=== PATIENT | female | born 1975 | race Asian ===

== ENCOUNTER 2017-09-29 07:10 | Inpatient (IN) | payer OTHER ==
[2017-09-29] VITALS (7 sets, daily range): BP systolic 152–192; BP diastolic 88–128
[~2017-09-29] VITALS: Ht 152.4 cm; Wt 86.2 kg
[2017-09-29] MEDS ORDERED: NOHOMEMEDICATIONS (07:17)
[2017-09-29 07:59] LABS: ABSOLUTE EOSINOPHILS 0.1 thou/uL (0.0-0.7); ABSOLUTE LYMPHOCYTES 1.9 thou/uL (0.8-5.3); ABSOLUTE MONOCYTES 0.2 thou/uL (0.0-1.2); ABSOLUTE NEUTROPHILS 4.4 thou/uL (1.6-8.1); BASOPHILS 0.4 %; CALCIUM 8.6 mg/dL (8.5-10.1); CREATININE 0.9 mg/dL (0.6-1.3); EOSINOPHILS 2.1 %; HEMATOCRIT 40.7 % (37.0-47.0); HEMOGLOBIN 12.8 gm/dL (12.0-15.0); LYMPHOCYTES 28.2 %; MCH 23.5 pg (26.0-34.0); MCHC 31.5 g/dL (28.0-37.0); MCV 74.6 fL (80.0-100.0); MONOCYTES 3.6 %; MPV 9.4 fl. (7.2-11.1); NUCLEATED RBCS 0 /100WBC; PLATELET COUNT* 285 thou/uL (150-400); POLYS 65.7 %; POTASSIUM 3.8 mmol/L (3.5-5.1); RBC 5.45 mil/uL (4.20-5.00); RDW-CV 15.2 % (10.5-14.5); WBC 6.7 thou/uL (4.0-11.0)
[2017-09-29 08:14] LABS: ALBUMIN 3.8 g/dL (3.4-5.0); TOTAL BILIRUBIN 0.7 mg/dL (<0.1-1.0); TOTAL PROTEIN 8.1 g/dL (6.4-8.2)
--- NOTE | 2017-09-29 14:25 | NUR ---
ASSUMED CARE OF PATIENT AT 1240 AFTER TRANSFER FROM ED. PATIENT IS ALERT AND ORIENTED X4. VSS ON ROOM AIR. ASSESSMENT COMPLETED AND CHARTED. FLUIDS AND ANTIBIOTIC INFUSING. PATIENT HAS NO COMPLAINTS OF NAUSEA. PATIENT HAS LARGE HEMATOMA ON RIGHT LOWER EXTREMITY JUST BELOW THE KNEE. PATIENT WAS GIVEN PAIN MEDICATION BEFORE TRANSFER SO SHE IS RATING HER PAIN AT ABOUT A 3 WHICH IS A COMFORTABLE LEVER FOR HER AT THIS TIME. ORIENTED PATIENT TO ROOM, CALL LIGHT IS WITHIN REACH AND PATIENT IS INSTRUCTED TO CALL US FOR HER NEEDS. NURSING WILL CONTINUE TO MONITOR.
--- NOTE | 2017-09-29 16:38 | NUR ---
PATIENT REMAINS ALERT AND ORIENTED. VSS REMAIN STABLE ON ROOM AIR. PATIENTS BLOOD PRESSURE RUNS HIGH BASELINE. STILL NO COMPLAINTS OF PAIN OR NAUSEA. ORTHO ORDERED AN EXTRA PILLOW UNDER THE AFFECTED LEG WITH BAGS OF ICE TO BE PLACE AROUND THE LEG BUT NOT ON THE WOUND. HOURLY ROUNDS HAVE BEEN MAINTAINED. CALL LIGHT IS WITHIN REACH. NURSING WILL CONTINUE TO MONITOR.
[2017-09-30 04:43] VITALS: BP 155/92
[2017-09-30 04:51] LABS: ABSOLUTE EOSINOPHILS 0.1 thou/uL (0.0-0.7); ABSOLUTE LYMPHOCYTES 2.9 thou/uL (0.8-5.3); ABSOLUTE MONOCYTES 0.4 thou/uL (0.0-1.2); ABSOLUTE NEUTROPHILS 5.1 thou/uL (1.6-8.1); BASOPHILS 0.4 %; EOSINOPHILS 1.1 %; HEMATOCRIT 32.9 % (37.0-47.0); MCH 23.8 pg (26.0-34.0); MCHC 31.4 g/dL (28.0-37.0); MCV 75.8 fL (80.0-100.0); MONOCYTES 4.6 %; MPV 10.3 fl. (7.2-11.1); NUCLEATED RBCS 0 /100WBC; PLATELET COUNT* 264 thou/uL (150-400); POLYS 59.9 %; RBC 4.34 mil/uL (4.20-5.00); RDW-CV 14.8 % (10.5-14.5); WBC 8.5 thou/uL (4.0-11.0)
[2017-09-30 04:54] LABS: HEMOGLOBIN 10.3 gm/dL (12.0-15.0)
[2017-09-30 04:59] LABS: CALCIUM 7.9 mg/dL (8.5-10.1); CREATININE 0.7 mg/dL (0.6-1.3); POTASSIUM 3.6 mmol/L (3.5-5.1); TOTAL BILIRUBIN 1.1 mg/dL (<0.1-1.0); TOTAL PROTEIN 6.6 g/dL (6.4-8.2)
--- NOTE | 2017-09-30 06:28 | NUR ---
PT SLEPT WELL OVERNIGHT, HAS DENIED NEED FOR PAIN MED THIS SHIFT. GOOD SENSATION TO R FOOT, ABLE TO WIGGLE TOES, BRISK CAP REFILL, SKIN PINK AND WARM TO TOUCH. COREY WRAP DRSG CDI TO RLE. AM LABS DRAWN. UP WITH ASSIST TO BSC TO VOID OVERNIGHT. LHAND IVF INFUSING PER PUMP. ABLE TO USE CALL LITE AND MAKE NEEDS KNOWN. NPO SINCE MIDNIGHT IN CASE OF SURGICAL INTERVENTION TO RLE.
[2017-09-30 08:00] VITALS: BP 165/104
--- NOTE | 2017-09-30 15:09 | NUR ---
CM SPOKE TO THE PATIENT TO DISCUSS HOME SITUATION, DISCHARGE PLANNING, AND TO INFORM OF THE ROLE OF CM. PATIENT ALERT, ORIENTED, AND INDEPENDENT WITH ADL'S. PATIENT WORKS AND DRIVES. PATIENT RESIDES AT HOME WITH SPOUSE. PATIENT OWNS 0 DME. PATIENT HAS NO HX OF HH OR SNF. CM WILL REMAIN AVAILABLE TO ASSIST AND FOLLOW NEEDED.
[2017-09-30 18:30] VITALS: BP 150/101
--- NOTE | 2017-09-30 18:51 | NUR ---
PATIENT REMAINED ALERT AND ORIENTED X'S 4. VITAL SIGNS AND SPO2 STABLE. IV CLEAN, FLUIDS INFUSING. DRESSING OVER HEMATOMA ON RIGHT LEG CLEAN, DRY, INTACT. GAVE PAIN MEDS ONLY ONCE AT THE BEGINNING OF THE SHIFT. TOLERATED DIET, NO NAUSEA AND VOMITING. RECIEVED FLU VACCINE. REFUSED SCD'S. COMPLETED HOURLY ROUNDING. CALL LIGHT WITHIN REACH. WILL CONTINUE TO MONITOR.
[2017-09-30 21:20] VITALS: BP 170/104
[2017-09-30 23:21] VITALS: BP 151/106
[2017-10-01 03:42] VITALS: BP 155/114
[2017-10-01 03:54] VITALS: BP 155/102
--- NOTE | 2017-10-01 05:51 | NUR ---
ALERT AND ORIENTED X4. RIGHT LEG ELEVATED ON PILLOWS. RIGHT FOOT WARM AND PINK WITH GOOD CAPILLARY REFILL. COREY WRAP DRESSING DRY AND INTACT OVER RIGHT LEG. PRN BLOOD PRESSURE GIVEN FOR ELEVATED B/P. CALL LIGHT WITHIN REACH.
[2017-10-01 08:25] VITALS: BP 159/119
--- NOTE | 2017-10-01 12:54 | NUR ---
Following through dc. Spoke with ortho , Pt will need outpt wound care appt, CM to schedule on Tuesday, and update Pt. At dc, Pt to dc with HH, HH orders to be faxed to [facility] [phone], include on dc orders, wound care instructions for HH to follow. CM placed initial HH referral in the front of Pt's chart. Fax upon dc.
[2017-10-01 12:56] VITALS: BP 155/102
[2017-10-01 13:37] LABS: HEMATOCRIT 35.8 % (37.0-47.0); HEMOGLOBIN 11.4 gm/dL (12.0-15.0); MCH 23.8 pg (26.0-34.0); MCHC 31.8 g/dL (28.0-37.0); MCV 74.9 fL (80.0-100.0); RBC 4.78 mil/uL (4.20-5.00); RDW-CV 14.9 % (10.5-14.5); WBC 8.7 thou/uL (4.0-11.0)
[2017-10-01 13:49] LABS: CREATININE 0.8 mg/dL (0.6-1.3); POTASSIUM 3.2 mmol/L (3.5-5.1)
[2017-10-01 16:16] VITALS: BP 124/91
[2017-10-01 23:03] VITALS: BP 144/99
--- NOTE | 2017-10-01 23:04 | NUR ---
PATIENT REMAINED ALERT AND ORIENTED X'S 4. VITAL SIGNS AND SPO2 STABLE. IV CLEAN, FLUIDS INFUSING. TOLERATED DIET, NO NAUSEA AND VOMITING. VOIDED AND PASSED BM. PATIENT HAS DENIED THE NEED FOR PAIN MEDS. REDRESSED HEMATOMA, BLISTER BURST. DRESSING IS CLEAN, DRY, INTACT. UP AD SONNY. COMPLETED HOURLY ROUNDING. CALL LIGHT WITHIN REACH. WILL CONTINUE TO MONITOR.
[2017-10-02] VITALS: BP 144/99
[2017-10-02 04:36] LABS: HEMATOCRIT 33.2 % (37.0-47.0); HEMOGLOBIN 10.4 gm/dL (12.0-15.0); MCH 23.4 pg (26.0-34.0); MCHC 31.2 g/dL (28.0-37.0); MCV 74.9 fL (80.0-100.0); MPV 9.4 fl. (7.2-11.1); RBC 4.43 mil/uL (4.20-5.00); RDW-CV 15.1 % (10.5-14.5); WBC 6.9 thou/uL (4.0-11.0)
[2017-10-02 05:23] LABS: CALCIUM 8.8 mg/dL (8.5-10.1); CREATININE 0.8 mg/dL (0.6-1.3)
[2017-10-02 05:34] LABS: POTASSIUM 4.3 mmol/L (3.5-5.1)
--- NOTE | 2017-10-02 06:55 | NUR ---
ALERT AND ORIENTED. UP AD SONNY TO BEDSIDE COMMODE. COREY WRAP DRESSING REMAINS DRY AND INTACT OVER BRUISED AND BLISTER AREAS ON RIGHT LOWER LEG. PAIN MEDICATION GIVEN X1 AND HELPFUL. RIGHT FOOT WARM AND PINK. CALL LIGHT WITHIN REACH.
[2017-10-02 08:50] VITALS: BP 136/72
--- NOTE | 2017-10-02 16:46 | NUR ---
PATIENT REMAINS ALERT AND ORIENTED. DENIES NEED FOR PAIN MEDS. DISCOMFORT WITH AMBULATION. CT DONE TODAY. TOLERATING MEALS. IV SALINE LOCKED PER PATIENT REQUEST. VOIDING PER BATHROOM. AMBULATING AD SONNY. CALL LIGHT WITHIN REACH. WILL CONTINUE TO MONITOR.
[2017-10-02 20:20] VITALS: BP 154/95
[2017-10-03 04:41] LABS: HEMATOCRIT 31.9 % (37.0-47.0); MCH 23.6 pg (26.0-34.0); MCHC 31.5 g/dL (28.0-37.0); MPV 9.2 fl. (7.2-11.1); RBC 4.25 mil/uL (4.20-5.00); RDW-CV 15.3 % (10.5-14.5); WBC 7.6 thou/uL (4.0-11.0)
[2017-10-03 05:05] LABS: CALCIUM 8.6 mg/dL (8.5-10.1); CREATININE 0.8 mg/dL (0.6-1.3); POTASSIUM 4.3 mmol/L (3.5-5.1)
--- NOTE | 2017-10-03 05:18 | NUR ---
ALERT AND ORIENTED X4. UP AD SONNY IN ROOM. COREY WRAP DRESSING REMAINS IN PLACE OVER RIGHT LOWER LEG WOUND. NO DRAINAGE NOTED. RIGHT FOOT WARM AND PINK IWTH GOOD CAPILLARY REFILL. CALL LIGHT WITHIN REACH.
[2017-10-03 08:00] VITALS: BP 144/68
[2017-10-03] MEDS ORDERED: HYDROCODONE-AP1 EAC6 PO (10:07)
[2017-10-03] MEDS ORDERED: PANTOPRAZOLE SO40 M1 PO (10:30)
[2017-10-03] MEDS ORDERED: HYDROCODON-ACE1 EAC7 PO (10:30)
[2017-10-03] MEDS ORDERED: BENAZEPRIL 10 M10 MG PO (10:30)
--- NOTE | 2017-10-03 13:51 | NUR ---
CM SPOKE TO THE PATIENT TO DISCUSS DISCHARGE PLANNING NEEDS, AND CHOICE OF HH. PATIENT CHOSE [facility]. CM SPOKE TO STEPHON WITH [facility] TO INFORM OF THE REFERRAL AND FAXED PATIENTS FACESHEET, H&P, AND D/C ORDERS. CM WILL REMAIN AVIALABLE TO ASSIST AND FOLLOW NEEDED.
[2017-10-03 14:19] VITALS: BP 155/102
--- NOTE | 2017-10-03 14:40 | NUR ---
PATIENT DISCHARGED TO HOME AT THIS TIME. WOUND CARE NURSE ROUNDED ON PATIENT PRIOR TO DC. WOUND CARE APPT MADE BY [facility]. IV REMOVED. DRESSING CHANGED PRIOR TO DC. IV REMOVED. PATIENT VERBALIZED UNDERSTANDING OF DC INSTRUCTIONS. DISCHARGED WITH SPOUSE.
[2017-10-03 15:02] VITALS: BP 155/102
--- NOTE | 2017-10-03 15:50 | NUR ---
WOUND CARE NOTE: REQUESTED TO SEE PER PATIENT. PATIENT WITH A HEMATOMA TO THE LEFT LEG. BRUISING PRESENT TO DONNA-WOUND. AREA IS LOOKING MUCH IMPROVED FROM ADMISSION PHOTO. BLISTERING IS LESSENING. BLISTERS ARE FILLED WITH SEROSANGUINEOUS FLUID. GENTLY CLEANSED WITH WOUND CLEANSER, PAT DRY. APPLIED VASELINE GAUZE TO WOUND AND COVERED WITH 4X4. SECURED WITH KERLIX AND COREY. EDUCATED ON KEEPING WOUND COVERED, COMMUNICATED UNDERSTANDING. EDUCATED ON IMPORTANCE OF NUTRITION FOR WOUND HEALING, COMMUNICATED UNDERSTANDING. APPOINTMENT MADE WITH WOUND CENTER WITH DR. VARGAS.
== END 2017-10-03 14:45 | disposition home health service (06) | DRG 605 ==
LOC: M.ERS 07:10 → M.TBA-ER 11:13 → M.ORTHSURG 11:13
PROVIDERS: Family Medicine; Personal Emergency Response Attendant; ADMIT Internal Medicine
DX: S80.11XA Contusion of right lower leg, initial encounter (principal); I10 Essential (primary) hypertension; E87.6 Hypokalemia; D64.9 Anemia, unspecified; I16.0 Hypertensive urgency; K21.9 Gastro-esophageal reflux disease without esophagitis; V89.2XXA Person injured in unspecified motor-vehicle accident, traffic, initial encounter; Y93.89 Activity, other specified; Y92.89 Other specified places as the place of occurrence of the external cause; Y99.8 Other external cause status; Z23 Encounter for immunization

== ENCOUNTER → 2017-10-10 | Outpatient (CLI) | payer OTHER ==
[~2017-10-10] MED LIST: BENAZEPRIL 10 M10 MG PO; HYDROCODON-ACE1 EAC7 PO; HYDROCODONE-AP1 EAC6 PO; NOHOMEMEDICATIONS; PANTOPRAZOLE SO40 M1 PO
== END ==
LOC: M.WC 04:50
DX: S81.801D Unspecified open wound, right lower leg, subsequent encounter (principal); I10 Essential (primary) hypertension; X58.XXXD Exposure to other specified factors, subsequent encounter

== ENCOUNTER → 2017-10-17 | Outpatient (CLI) | payer OTHER | LOC: M.WC 00:48 | DX: T79.2XXA Traumatic secondary and recurrent hemorrhage and seroma, initial encounter (principal); I10 Essential (primary) hypertension; V87.7XXA Person injured in collision between other specified motor vehicles (traffic), initial encounter ==

== ENCOUNTER → 2017-10-19 | Outpatient (CLI) | payer OTHER | LOC: M.WC 01:54 | DX: T79.2XXA Traumatic secondary and recurrent hemorrhage and seroma, initial encounter (principal); S81.801D Unspecified open wound, right lower leg, subsequent encounter; I10 Essential (primary) hypertension; X58.XXXD Exposure to other specified factors, subsequent encounter; V87.7XXD Person injured in collision between other specified motor vehicles (traffic), subsequent encounter ==

== ENCOUNTER → 2017-10-21 | Outpatient (CLI) | payer OTHER | LOC: M.WC 01:28 | DX: T79.2XXD Traumatic secondary and recurrent hemorrhage and seroma, subsequent encounter (principal); S81.801D Unspecified open wound, right lower leg, subsequent encounter; I10 Essential (primary) hypertension; V87.7XXD Person injured in collision between other specified motor vehicles (traffic), subsequent encounter ==

== ENCOUNTER → 2017-10-24 | Outpatient (CLI) | payer OTHER | LOC: M.WC 02:21 | DX: T79.2XXD Traumatic secondary and recurrent hemorrhage and seroma, subsequent encounter (principal); S81.801D Unspecified open wound, right lower leg, subsequent encounter; I10 Essential (primary) hypertension; K21.9 Gastro-esophageal reflux disease without esophagitis; E66.9 Obesity, unspecified; Z68.35 Body mass index [BMI] 35.0-35.9, adult; X58.XXXD Exposure to other specified factors, subsequent encounter; V87.7XXD Person injured in collision between other specified motor vehicles (traffic), subsequent encounter ==

== ENCOUNTER → 2017-10-27 | Outpatient (CLI) | payer OTHER | LOC: M.WC 01:22 | DX: T79.2XXD Traumatic secondary and recurrent hemorrhage and seroma, subsequent encounter (principal); I10 Essential (primary) hypertension; K21.9 Gastro-esophageal reflux disease without esophagitis; Z68.35 Body mass index [BMI] 35.0-35.9, adult; V87.7XXD Person injured in collision between other specified motor vehicles (traffic), subsequent encounter ==

== ENCOUNTER → 2017-10-31 | Outpatient (CLI) | payer OTHER | LOC: M.WC 01:18 | DX: T79.2XXD Traumatic secondary and recurrent hemorrhage and seroma, subsequent encounter (principal); S81.801D Unspecified open wound, right lower leg, subsequent encounter; I10 Essential (primary) hypertension; K21.9 Gastro-esophageal reflux disease without esophagitis; Z68.35 Body mass index [BMI] 35.0-35.9, adult; V87.7XXD Person injured in collision between other specified motor vehicles (traffic), subsequent encounter ==

== ENCOUNTER → 2017-11-03 | Outpatient (CLI) | payer OTHER | LOC: M.WC 01:50 | DX: T79.2XXD Traumatic secondary and recurrent hemorrhage and seroma, subsequent encounter (principal); I10 Essential (primary) hypertension; K21.9 Gastro-esophageal reflux disease without esophagitis; Z68.35 Body mass index [BMI] 35.0-35.9, adult; V87.7XXD Person injured in collision between other specified motor vehicles (traffic), subsequent encounter ==

== ENCOUNTER → 2017-11-07 | Outpatient (CLI) | payer OTHER | LOC: M.WC 02:06 | DX: L97.212 Non-pressure chronic ulcer of right calf with fat layer exposed (principal); I10 Essential (primary) hypertension ==

== ENCOUNTER → 2017-11-10 | Outpatient (CLI) | payer OTHER | LOC: M.WC 01:31 | DX: S81.801D Unspecified open wound, right lower leg, subsequent encounter (principal); L97.212 Non-pressure chronic ulcer of right calf with fat layer exposed; I10 Essential (primary) hypertension; X58.XXXD Exposure to other specified factors, subsequent encounter ==

== ENCOUNTER → 2017-11-14 | Outpatient (CLI) | payer OTHER | LOC: M.WC 01:36 | DX: T79.2XXD Traumatic secondary and recurrent hemorrhage and seroma, subsequent encounter (principal); L97.212 Non-pressure chronic ulcer of right calf with fat layer exposed; I10 Essential (primary) hypertension; V87.7XXD Person injured in collision between other specified motor vehicles (traffic), subsequent encounter ==

== ENCOUNTER → 2017-11-21 | Outpatient (CLI) | payer OTHER | LOC: M.WC 01:45 | DX: S81.801D Unspecified open wound, right lower leg, subsequent encounter (principal); I10 Essential (primary) hypertension; X58.XXXD Exposure to other specified factors, subsequent encounter ==

== ENCOUNTER → 2017-11-28 | Outpatient (CLI) | payer OTHER | LOC: M.WC 00:05 | DX: L97.212 Non-pressure chronic ulcer of right calf with fat layer exposed (principal); S81.801D Unspecified open wound, right lower leg, subsequent encounter; I10 Essential (primary) hypertension; X58.XXXD Exposure to other specified factors, subsequent encounter ==

== ENCOUNTER → 2017-12-05 | Outpatient (CLI) | payer OTHER | LOC: M.WC 00:01 | DX: T79.2XXD Traumatic secondary and recurrent hemorrhage and seroma, subsequent encounter (principal); L97.212 Non-pressure chronic ulcer of right calf with fat layer exposed; I10 Essential (primary) hypertension; V87.7XXD Person injured in collision between other specified motor vehicles (traffic), subsequent encounter ==

== ENCOUNTER → 2017-12-12 | Outpatient (CLI) | payer OTHER | LOC: M.WC 01:29 | DX: T79.2XXD Traumatic secondary and recurrent hemorrhage and seroma, subsequent encounter (principal); L97.212 Non-pressure chronic ulcer of right calf with fat layer exposed; I10 Essential (primary) hypertension; V87.7XXD Person injured in collision between other specified motor vehicles (traffic), subsequent encounter ==

== ENCOUNTER → 2017-12-19 | Outpatient (CLI) | payer OTHER | LOC: M.WC 01:35 | DX: S81.801D Unspecified open wound, right lower leg, subsequent encounter (principal); I10 Essential (primary) hypertension; X58.XXXD Exposure to other specified factors, subsequent encounter ==

== ENCOUNTER → 2017-12-27 | Outpatient (CLI) | payer OTHER | LOC: M.WC 00:49 | DX: L97.212 Non-pressure chronic ulcer of right calf with fat layer exposed (principal); I10 Essential (primary) hypertension ==

== ENCOUNTER → 2017-12-27 | Outpatient (CLI) | payer OTHER | LOC: M.RAD 08:47 | DX: Z12.31 Encounter for screening mammogram for malignant neoplasm of breast (principal) ==

== ENCOUNTER → 2018-01-02 | Outpatient (CLI) | payer OTHER | LOC: M.WC 00:47 | DX: L97.212 Non-pressure chronic ulcer of right calf with fat layer exposed (principal); I10 Essential (primary) hypertension ==

== ENCOUNTER → 2020-05-28 | Outpatient (CLI) | payer OTHER | LOC: M.RAD 13:23 | PROVIDERS: ATTEND Family Medicine | DX: Z12.31 Encounter for screening mammogram for malignant neoplasm of breast (principal) ==